=== PATIENT | male | born 1930 | race Caucasian/White ===

== ENCOUNTER 2016-03-02 17:05 | Observation (INO) | payer OTHER, BC ==
[~2016-03-02] VITALS: Ht 167.6 cm; Wt 74.4 kg
[~2016-03-02 17:05] MED LIST: ASPIR-LOW81 MG PO; CARDIZEM CD,CA300 MG PO; CARDIZEM CD120 MG PO; CARDIZEM CD300 MG PO; CIPROFLOXACIN500 M1 PO; CLONIDINE HCL0.1 MG PO; COLACE100 MG PO; DOCUSATE SODIU100 MG PO; EFFEXOR37.5 MG PO; ELIQUIS2.5 MG PO; FAMOTIDINE20 MG PO; FUROSEMIDE20 MG PO; GAS RELIEF 8080 MG PO; HYDRALAZINE HC100 MG PO; IMDUR120 MG PO; IMDUR30 MG PO; IMDUR60 MG PO; ISOSORBIDE MON120 M1 PO; K-DUR20 MEQ PO; KLOR-CON M2020 MEQ PO; LAMISIL AT12 GM TP; LASIX20 MG PO; LEXAPRO20 MG PO; LISINOPRIL10 MG PO; LISINOPRIL40 MG PO; MILK OF MAGN PO; MIRALAX17 GM PO; MYSOLINE50 MG PO; NITROSTAT0.4 MG SL; PRIMIDONE50 MG PO; PYRIDIUM200 MG PO; ST. JOSEPH ASPI81 MG PO; TYLENOL EXTRA500 MG PO; ULTRAM50 MG PO; Z-SLEEP25 MG PO
[2016-03-02 18:37] LABS: BASOPHIL COUNT 0.1 K/uL (0-0.1); EOSINOPHIL (%) 2.8 % (0-5); EOSINOPHIL COUNT 0.2 K/uL (0-0.3); IMMATURE GRANULOCYTE (%) 0.6 % (0.0-0.7); IMMATURE GRANULOCYTE COUNT 0.4 K/uL; LYMPHOCYTE COUNT 1.5 K/uL (1.0-2.8); MCH 30.6 PG (29.0-34.0); MCHC 34.6 G/DL (30.0-36.0); MCV 88.4 FL (86-99); MEAN PLAT.VOLUME 9.8 uM^3 (9.0-12.4); MONOCYTE (%) 10.1 % (3-12); MONOCYTE COUNT 0.7 K/uL (0-0.8); NEUTROPHIL (%) 64.6 % (45-76); NEUTROPHIL COUNT 4.7 K/uL (1.8-6.4); PLATELET COUNT 206 K/uL (156-360); RBC DIS.WIDTH-CV 13.5 % (11.8-14.6); RBC DIS.WIDTH-SD 42.5 % (39-53); RED BLOOD COUNT 4.64 M/uL (4.00-5.50); WHITE BLOOD COUNT 7.3 K/uL (4.1-10.2)
[2016-03-02 18:48] LABS: PROTHROMBIN TIME 10.6 (9.2-11.2); PTT 31.5 (25-32)
[2016-03-02 19:01] LABS: ANION GAP 8 MEQ/L (2-14); CHLORIDE 102 MEQ/L (99-109); POTASSIUM 4.1 MEQ/L (3.7-5.4); SAMPLE HEMOLYSIS CHECK 0; SAMPLE ICTERIC CHECK 0; SAMPLE LIPEMIA CHECK 0; SODIUM 138 MEQ/L (136-147); TOTAL BILIRUBIN 0.5 MG/DL (0.0-1.0)
[2016-03-02 19:07] LABS: ALKALINE PHOSPHATASE 69 IU/L (3-129); GFR ESTIMATE (CALCULATED) > 59 mL/min/; GLUCOSE 91 mg/dL (70-99); LIPASE 36 U/L (1.0-51.0); UREA NITROGEN (BUN) 21 mg/dL (9-23)
[2016-03-02 19:09] LABS: TROP-I INTERPRETATION NEGATIVE; TROPONIN-I 0.03 ng/mL (0.0-0.30)
[2016-03-02 19:28] LABS: ADD MIUA? NO; BILIRUBIN NEGATIVE; BLOOD NEGATIVE; COLOR YELLOW ((YELLOW)); GLUCOSE (STRIP) NEGATIVE; KETONES NEGATIVE; LEUKOCYTES NEGATIVE; NITRITE NEGATIVE; PROTEIN (STRIP) 30; SPECIFIC GRAVITY 1.013 (1.000-1.030); UCUL ADDED? NO; UROBILINOGEN 0.2 MG/DL (0.2-1.0)
[2016-03-02] MEDS ORDERED: PEPCID20 MG PO (20:13)
[2016-03-02] MEDS ORDERED: APRESOLINE25 MG PO (20:14)
[2016-03-02] MEDS ORDERED: TUMS500 MG PO (20:16)
[2016-03-02] MEDS ORDERED: FLEET ENEMA-AD118 ML PR (20:17)
[2016-03-02 21:50] VITALS: BP 178/84
[2016-03-02 22:00] VITALS: BP 135/72
[2016-03-03 00:24] VITALS: BP 184/95
[2016-03-03 01:08] LABS: TROP-I INTERPRETATION NEGATIVE; TROPONIN-I 0.07 ng/mL (0.0-0.30)
[2016-03-03 01:47] VITALS: BP 146/76
[2016-03-03 05:53] VITALS: BP 169/90
[2016-03-03 08:08] LABS: TROP-I INTERPRETATION NEGATIVE; TROPONIN-I 0.06 ng/mL (0.0-0.30)
[2016-03-03 08:10] VITALS: BP 161/63
[2016-03-03 08:52] LABS: BASOPHIL COUNT 0.1 K/uL (0-0.1); EOSINOPHIL (%) 5.3 % (0-5); EOSINOPHIL COUNT 0.3 K/uL (0-0.3); HEMATOCRIT 37.9 % (38.0-50.0); IMMATURE GRANULOCYTE (%) 0.6 % (0.0-0.7); LYMPHOCYTE COUNT 1.6 K/uL (1.0-2.8); MCH 30.4 PG (29.0-34.0); MCHC 33.8 G/DL (30.0-36.0); MEAN PLAT.VOLUME 10.9 uM^3 (9.0-12.4); MONOCYTE (%) 11.3 % (3-12); MONOCYTE COUNT 0.6 K/uL (0-0.8); NEUTROPHIL (%) 51.2 % (45-76); NEUTROPHIL COUNT 2.7 K/uL (1.8-6.4); PLATELET COUNT 191 K/uL (156-360); RBC DIS.WIDTH-CV 13.8 % (11.8-14.6); RBC DIS.WIDTH-SD 45.1 % (39-53); RED BLOOD COUNT 4.21 M/uL (4.00-5.50); WHITE BLOOD COUNT 5.3 K/uL (4.1-10.2)
[2016-03-03 10:04] LABS: ANION GAP 10 MEQ/L (2-14); CHLORIDE 106 MEQ/L (99-109); GFR ESTIMATE (CALCULATED) > 59 mL/min/; GLUCOSE 91 mg/dL (70-99); POTASSIUM 4.3 MEQ/L (3.7-5.4); SAMPLE HEMOLYSIS CHECK 0; SAMPLE ICTERIC CHECK 0; SAMPLE LIPEMIA CHECK 0; SODIUM 141 MEQ/L (136-147); UREA NITROGEN (BUN) 19 mg/dL (9-23)
[2016-03-03 12:45] VITALS: BP 170/64
== END 2016-03-03 17:13 ==
LOC: EME 17:05 → 5WEST 20:09 → EDOF 20:09 → 5WEST 21:39
PROVIDERS: Emergency Medicine; Physician Assistant; Student in an Organized Health Care Education/Training Program
DX: R07.89 Other chest pain (principal); R94.31 Abnormal electrocardiogram [ECG] [EKG]; I48.92 Unspecified atrial flutter; I48.2 Chronic atrial fibrillation; I50.9 Heart failure, unspecified; I10 Essential (primary) hypertension; E11.9 Type 2 diabetes mellitus without complications; J90 Pleural effusion, not elsewhere classified; H91.90 Unspecified hearing loss, unspecified ear; Z79.01 Long term (current) use of anticoagulants; Z66 Do not resuscitate; Z91.013 Allergy to seafood
CPT/HCPCS: 71020; 74176; 80048; 80053; 81003; 83605; 83690; 84484; 85025; 85610; 85730; 93005; 94799; 99281; 99285; G0378; J2270; J2405; J7030

== ENCOUNTER 2016-03-28 10:04 | Day surgery (SDC) | payer OTHER, BC ==
[~2016-03-28] VITALS: Ht 170.2 cm; Wt 72.0 kg
[~2016-03-28 10:04] MED LIST changes: +APRESOLINE25 MG PO; +FLEET ENEMA-AD118 ML PR; +PEPCID20 MG PO; +TUMS500 MG PO
[2016-03-28] MEDS ORDERED: EFFEXOR XR37.5 MG PO (10:34)
[2016-03-28 10:41] LABS: POINT-OF-CARE METER ID UU13113696
[2016-03-28 13:03] LABS: POINT-OF-CARE METER ID UU13113819
== END 2016-03-28 16:20 ==
LOC: CATH 10:04
PROVIDERS: Internal Medicine Cardiovascular Disease
DX: R07.9 Chest pain, unspecified (principal); I25.10 Atherosclerotic heart disease of native coronary artery without angina pectoris; I48.91 Unspecified atrial fibrillation; R94.39 Abnormal result of other cardiovascular function study; I10 Essential (primary) hypertension
CPT/HCPCS: 82948; C1769; C1887; J1644; J2250; J3010

== ENCOUNTER 2016-05-15 11:03 | Inpatient (IN) | payer OTHER, BC ==
[~2016-05-15] VITALS: Ht 167.6 cm; Wt 72.7 kg
[~2016-05-15 11:03] MED LIST changes: +EFFEXOR XR37.5 MG PO
[2016-05-15 12:12] LABS: BASOPHIL COUNT 0.1 K/uL (0-0.1); EOSINOPHIL COUNT 0.2 K/uL (0-0.3); HEMATOCRIT 41.4 % (38.0-50.0); IMMATURE GRANULOCYTE COUNT 0.1 K/uL; INSTRUMENT ABS NEUTROPHIL CT 5.4 K/uL; LYMPHOCYTE COUNT 1.5 K/uL (1.0-2.8); MCH 29.6 PG (29.0-34.0); MCHC 33.1 G/DL (30.0-36.0); MCV 89.4 FL (86-99); MEAN PLAT.VOLUME 10.1 uM^3 (9.0-12.4); MONOCYTE (%) 11.6 % (3-12); MONOCYTE COUNT 0.9 K/uL (0-0.8); NEUTROPHIL (%) 66.6 % (45-76); NEUTROPHIL COUNT 5.4 K/uL (1.8-6.4); PLATELET COUNT 277 K/uL (156-360); RBC DIS.WIDTH-CV 13.2 % (11.8-14.6); RBC DIS.WIDTH-SD 42.8 % (39-53); RED BLOOD COUNT 4.63 M/uL (4.00-5.50); WHITE BLOOD COUNT 8.1 K/uL (4.1-10.2)
[2016-05-15 12:22] LABS: INTER. NORMALIZED RATIO 1.2; PROTHROMBIN TIME 11.9 (9.2-11.2); PTT 33.1 (25-32)
[2016-05-15 12:23] LABS: CHLORIDE 103 mEq/L (99-109); POTASSIUM 4.3 mEq/L (3.7-5.4); SODIUM 138 mEq/L (136-147)
[2016-05-15 12:24] LABS: GLUCOSE 167 mg/dL (70-99)
[2016-05-15 12:26] LABS: ANION GAP 10 MEQ/L (2-14)
[2016-05-15 12:28] LABS: GFR ESTIMATE (CALCULATED) 56 mL/min/
[2016-05-15 12:29] LABS: UREA NITROGEN (BUN) 29 mg/dL (9-23)
[2016-05-15 12:34] LABS: TROP-I INTERPRETATION NEGATIVE; TROPONIN-I 0.02 ng/mL (0.0-0.30)
[2016-05-15] MEDS ORDERED: MYSOLINE50 MG PO (14:57)
[2016-05-15] MEDS ORDERED: VENLAFAXINE H37.5 M3 PO (14:58)
[2016-05-15] MEDS ORDERED: ELIQUIS5 MG PO (14:59)
[2016-05-15 15:14] LABS: TROP-I INTERPRETATION NEGATIVE; TROPONIN-I 0.02 ng/mL (0.0-0.30)
[2016-05-15] MEDS ORDERED: EFFEXOR XR37.5 MG PO (15:40)
[2016-05-15 20:00] VITALS: BP 185/94
[2016-05-15 20:55] LABS: TROP-I INTERPRETATION NEGATIVE; TROPONIN-I 0.03 ng/mL (0.0-0.30)
[2016-05-16] VITALS (7 sets, daily range): BP systolic 143–175; BP diastolic 69–92
[2016-05-16 04:23] LABS: HEMATOCRIT 39.8 % (38.0-50.0); MCH 30.2 PG (29.0-34.0); MCHC 33.4 G/DL (30.0-36.0); MCV 90.5 FL (86-99); MEAN PLAT.VOLUME 9.9 uM^3 (9.0-12.4); PLATELET COUNT 246 K/uL (156-360); RBC DIS.WIDTH-CV 13.3 % (11.8-14.6); RBC DIS.WIDTH-SD 44.2 % (39-53); WHITE BLOOD COUNT 6.6 K/uL (4.1-10.2)
[2016-05-16 04:47] LABS: TROP-I INTERPRETATION NEGATIVE; TROPONIN-I 0.02 ng/mL (0.0-0.30)
[2016-05-16 04:50] LABS: CHLORIDE 104 mEq/L (99-109); POTASSIUM 4.5 mEq/L (3.7-5.4); SODIUM 139 mEq/L (136-147)
[2016-05-16 04:53] LABS: GLUCOSE 109 mg/dL (70-99)
[2016-05-16 04:54] LABS: ANION GAP 6 MEQ/L (2-14)
[2016-05-16 04:56] LABS: GFR ESTIMATE (CALCULATED) 51 mL/min/
[2016-05-16 04:57] LABS: UREA NITROGEN (BUN) 29 mg/dL (9-23)
[2016-05-16 07:13] LABS: Estimated Average Glucose 123 mg/dL (70-123); HEMOGLOBIN A1c (GLYCOHEMOGLOB) 5.9 % HGB (Below 5.7)
[2016-05-17 05:06] VITALS: BP 168/81
[2016-05-17 08:43] VITALS: BP 134/82
[2016-05-17 09:50] LABS: ANION GAP 9 MEQ/L (2-14); CHLORIDE 102 MEQ/L (99-109); GFR ESTIMATE (CALCULATED) > 59 mL/min/; GLUCOSE 211 mg/dL (70-99); SAMPLE HEMOLYSIS CHECK 0; SAMPLE ICTERIC CHECK 0; SAMPLE LIPEMIA CHECK 0; SODIUM 139 MEQ/L (136-147); UREA NITROGEN (BUN) 22 mg/dL (9-23)
[2016-05-17 11:58] VITALS: BP 133/75
[2016-05-17 16:27] VITALS: BP 120/73
[2016-05-17 19:46] VITALS: BP 149/77
[2016-05-17 23:28] VITALS: BP 150/81
[2016-05-18 03:21] VITALS: BP 148/87
[2016-05-18 05:50] LABS: BASOPHIL COUNT 0.1 K/uL (0-0.1); EOSINOPHIL (%) 3.5 % (0-5); EOSINOPHIL COUNT 0.3 K/uL (0-0.3); HEMATOCRIT 38.8 % (38.0-50.0); IMMATURE GRANULOCYTE (%) 0.8 % (0.0-0.7); IMMATURE GRANULOCYTE COUNT 0.1 K/uL; INSTRUMENT ABS NEUTROPHIL CT 4.4 K/uL; LYMPHOCYTE COUNT 1.7 K/uL (1.0-2.8); MCH 29.7 PG (29.0-34.0); MCHC 32.7 G/DL (30.0-36.0); MCV 90.9 FL (86-99); MONOCYTE (%) 9.8 % (3-12); MONOCYTE COUNT 0.7 K/uL (0-0.8); NEUTROPHIL (%) 61.2 % (45-76); NEUTROPHIL COUNT 4.4 K/uL (1.8-6.4); PLATELET COUNT 235 K/uL (156-360); RBC DIS.WIDTH-CV 13.4 % (11.8-14.6); RBC DIS.WIDTH-SD 43.8 % (39-53); RED BLOOD COUNT 4.27 M/uL (4.00-5.50); WHITE BLOOD COUNT 7.1 K/uL (4.1-10.2)
[2016-05-18 08:38] VITALS: BP 167/89
[2016-05-18 09:22] LABS: CHLORIDE 105 mEq/L (99-109); POTASSIUM 4.1 mEq/L (3.7-5.4); SODIUM 140 mEq/L (136-147)
[2016-05-18 09:25] LABS: ANION GAP 12 MEQ/L (2-14)
[2016-05-18 09:27] LABS: GFR ESTIMATE (CALCULATED) 47 mL/min/; GLUCOSE 113 mg/dL (70-99)
[2016-05-18 09:28] LABS: UREA NITROGEN (BUN) 26 mg/dL (9-23)
[2016-05-18 12:40] VITALS: BP 122/69
[2016-05-18 16:19] VITALS: BP 134/77
[2016-05-18 20:00] VITALS: BP 114/61; BP 149/79
[2016-05-19] VITALS: BP 114/61
[2016-05-19 04:00] VITALS: BP 166/92
[2016-05-19 09:13] VITALS: BP 168/76
[2016-05-19] MEDS ORDERED: ASPIR-LOW81 MG PO (11:48)
[2016-05-19] MEDS ORDERED: APRESOLINE10 MG PO (11:48)
[2016-05-19] MEDS ORDERED: PRAVASTATIN SOD40 MG PO (11:48)
[2016-05-19 13:05] VITALS: BP 166/75
[2016-05-23] MEDS ORDERED: ZANTAC300 MG PO (17:51)
[2016-05-23] MEDS ORDERED: EFFEXOR XR37.5 MG PO (17:53)
[2016-05-23] MEDS ORDERED: MSIR PO (18:01)
== END 2016-05-19 15:15 | DRG 303 ==
LOC: EME 11:03 → EDOF 15:49 → 4EAST 15:49 → 5SOUTH 15:49 → 4EAST 19:48 → 5SOUTH 05-17 23:05
PROVIDERS: Emergency Medicine; Internal Medicine; Physician Assistant Medical
DX: I25.110 Atherosclerotic heart disease of native coronary artery with unstable angina pectoris (principal); I48.4 Atypical atrial flutter; I50.32 Chronic diastolic (congestive) heart failure; I48.2 Chronic atrial fibrillation; I24.9 Acute ischemic heart disease, unspecified; E11.9 Type 2 diabetes mellitus without complications; I11.0 Hypertensive heart disease with heart failure; Z87.891 Personal history of nicotine dependence; F03.90 Unspecified dementia, unspecified severity, without behavioral disturbance, psychotic disturbance, mood disturbance, and anxiety; I35.1 Nonrheumatic aortic (valve) insufficiency; J98.11 Atelectasis; Z66 Do not resuscitate; Z51.5 Encounter for palliative care; G81.94 Hemiplegia, unspecified affecting left nondominant side; J84.10 Pulmonary fibrosis, unspecified
CPT/HCPCS: 70450; 70551; 71010; 71275; 80048; 83036; 84484; 85025; 85027; 85610; 85730; 93005; 93880; 99281; 99285

== ENCOUNTER 2017-05-15 13:51 | Emergency (ER) | payer OTHER, BC ==
[~2017-05-15] VITALS: Ht 165.1 cm; Wt 68.5 kg
[~2017-05-15 13:51] MED LIST changes: +APRESOLINE10 MG PO; +ELIQUIS5 MG PO; +MSIR PO; +PRAVASTATIN SOD40 MG PO; +VENLAFAXINE H37.5 M3 PO; +ZANTAC300 MG PO
[2017-05-15 14:42] LABS: HEMATOCRIT 35.3 % (38.0-50.0); HEMOGLOBIN 12.3 G/DL (12.5-16.6); MCH 30.8 PG (29.0-34.0); MCHC 34.8 G/DL (30.0-36.0); MCV 88.3 FL (86-99); PLATELET COUNT 260 K/uL (156-360); RBC DIS.WIDTH-CV 13.2 % (11.8-14.6); RBC DIS.WIDTH-SD 42.9 % (39-53); WHITE BLOOD COUNT 7.9 K/uL (4.1-10.2)
[2017-05-15 14:50] LABS: ALBUMIN 3.3 g/dL (3.2-4.8)
[2017-05-15 14:51] LABS: CHLORIDE 99 mEq/L (99-109); POTASSIUM 3.5 mEq/L (3.7-5.4); SODIUM 136 mEq/L (136-147)
[2017-05-15 14:53] LABS: GLUCOSE 137 mg/dL (70-99)
[2017-05-15 14:56] LABS: ALKALINE PHOSPHATASE 68 IU/L (3-129)
[2017-05-15 14:57] LABS: CREATININE 1.1 mg/dL (0.6-1.3); GFR ESTIMATE (CALCULATED) > 59 mL/min/ (58.99-99999)
[2017-05-15 14:58] LABS: AST (GOT) 20 IU/L (2-34); UREA NITROGEN (BUN) 17 mg/dL (9-23)
[2017-05-15 14:59] LABS: ALT (GPT) 13 IU/L (3-49)
[2017-05-15] MEDS ORDERED: AUGMENTIN875 MG PO (15:29)
[2017-05-15] MEDS ORDERED: AZITHROMYCIN250 MG1 PO (15:29)
[2017-05-15] MEDS ORDERED: ALBUTEROL2.5 MG/3 M IH (15:30)
[2017-05-15] MEDS ORDERED: AUGMENTIN80 MG/ML PO (15:40)
[2017-05-15] MEDS ORDERED: AZITHROMYC200 MG/5 M PO (15:40)
[2017-05-15] MEDS ORDERED: ZITHROMAX Z-PA250 MG PO (15:52)
[2017-05-15 17:19] VITALS: BP 136/100
== END 2017-05-15 18:11 ==
LOC: EME 13:51
PROVIDERS: Emergency Medicine Emergency Medical Services
DX: J18.9 Pneumonia, unspecified organism (principal); R10.31 Right lower quadrant pain; I48.91 Unspecified atrial fibrillation; I10 Essential (primary) hypertension; E11.9 Type 2 diabetes mellitus without complications; Z87.891 Personal history of nicotine dependence
CPT/HCPCS: 71045; 74176; 80053; 81003; 85027; 99281; 99284